=== PATIENT | female | born 1975 | race Caucasian/White ===

== ENCOUNTER 2019-06-20 18:48 | Inpatient (IN) | payer OTHER ==
[~2019-06-20 18:48] MED LIST: Bupivacaine 0.25% HCL 30 ML VIAL ONE
[2019-06-20] MEDS: Lactated Ringer's 1,000 ML IV SCH (20:30)
[2019-06-20] MEDS ORDERED: Penicillin G Potassium 5 MILL.UNITS VIAL ONE (21:11)
[2019-06-20] MEDS ORDERED: Sodium Chloride 0.9% 100 ML ONE (21:12)
[2019-06-20 21:22] VITALS: BMI 28.0
[2019-06-20 21:59] LABS: Hemoglobin 13.3 g/dL (12.0-16.0); Mean Corpuscular HGB CONC 34.4 g/dL (32.0-36.0); Mean Corpuscular Hemoglobin 29.9 pg (27.0-31.0); Mean Corpuscular Volume 86.9 fL (78.0-98.0); Mean Platelet Volume 7.7 fL (7.4-10.4); Platelet Count 179 thou/uL (130-400); RBC Distribution Width 13.1 % (11.5-14.5); Red Blood Cell (RBC) Count 4.46 mill/uL (4.20-5.40); White Blood Cell (WBC) Count 8.2 thou/uL (4.8-10.8)
[2019-06-20 22:39] LABS: Syphilis Antibody Nonreactive (Nonreactive); Syphilis Antibody Index 0.03 S/CO (<1.00 Non-Reactive)
[2019-06-20 22:57] LABS: HBSAg Index 0.35 S/CO (0-0.99); Hep B Surf Ag Non-Reactive S/CO (NonReactive)
[2019-06-20] MEDS ORDERED: Ondansetron PF 4 MG/2 ML Vial IVP PRN (23:16)
[2019-06-20] MEDS ORDERED: hydrALAZINE 20 MG/ML VIAL SLOW IVP PRN (23:16)
[2019-06-20] MEDS ORDERED: HYDROcodone/Acetaminophen 5/325 mg Tablet PO PRN (23:16)
[2019-06-20] MEDS ORDERED: Lidocaine 1% (PF) 30 ML VIAL SC PRN (23:16)
[2019-06-20] MEDS ORDERED: Ibuprofen 800 MG TAB PO PRN (23:16)
[2019-06-20] MEDS ORDERED: Promethazine HCl 25 MG/ML VIAL IM PRN (23:16)
[2019-06-20] MEDS ORDERED: NS / Oxytocin 40 units/1000ml 1,000 ML IV PRN (23:16)
[2019-06-20] MEDS ORDERED: Butorphanol Tartrate 1 MG/ML VIAL SLOW IVP PRN (23:16)
[2019-06-20] MEDS ORDERED: Penicillin G Potassium 5 MILL.UNITS in Sodium Chloride 0.9% 100 ML IVPB SCH (23:30)
[2019-06-20] MEDS ORDERED: Lactated Ringer's 1,000 ML IV SCH (23:30)
[2019-06-20] MEDS: Penicillin G 2.5 MILL.units 2.5 MILL.UNITS in Premix Bag 1 BAG IVPB SCH (23:49)
[2019-06-21] MEDS: Penicillin G 2.5 MILL.units 2.5 MILL.UNITS in Premix Bag 1 BAG IVPB SCH ×3 (01:13→10:13)
[2019-06-21] MEDS ORDERED: Fentanyl 4 mcg/Bup 0.1% Cadd 100 ML ONE (01:30)
[2019-06-21] MEDS ORDERED: NS / Oxytocin 40 units/1000ml 1,000 ML ONE (01:54)
[2019-06-21] MEDS ORDERED: Lidocaine 1% (PF) 30 ML VIAL ONE (01:54)
[2019-06-21] MEDS: Lactated Ringer's 1,000 ML IV SCH (02:23)
[2019-06-21] MEDS ORDERED: Lactated Ringer's 500 ML IV PRN (03:09)
[2019-06-21] MEDS ORDERED: Ondansetron PF 4 MG/2 ML Vial IVP PRN (03:09)
[2019-06-21] MEDS ORDERED: diphenhydrAMINE 50 MG/ML VIAL IVP PRN (03:09)
[2019-06-21] MEDS ORDERED: Promethazine HCl 25 MG/ML VIAL IM PRN (03:09)
[2019-06-21] MEDS ORDERED: ePHEDrine/0.9% NaCl/PF SYRINGE 50 mg/10 ml SLOW IVP PRN (03:09)
[2019-06-21] MEDS ORDERED: Naloxone HCl 0.4 mg/ml Vial IVP PRN ×2 (03:09)
[2019-06-21] MEDS ORDERED: Acetaminophen 325 MG TAB PO PRN (03:09)
[2019-06-21] MEDS ORDERED: Communication Order-Pharmacy FS SCH (03:15)
[2019-06-21] MEDS ORDERED: Fentanyl 4 mcg/Bupivacaine 0.1% Cassette 100 ML EPIDURAL SCH (03:15)
[2019-06-21] MEDS ORDERED: Misoprostol 200 MCG TAB ONE (06:20)
--- NOTE | 2019-06-21 06:51 | PDOC.LDHP ---
Labor and Delivery H&P Chief complaint: contractions HPI: CTX started at 6pm, persistent. Membranes stipped in office today. Current gestational age (weeks): 40 Due date: 06/21/19 Dating criteria: first trimester ultrasound Grav: 4 Para: 3 Current complications: none Abnormal US findings: No Current medications: pre- vitamins Previous surgical history: none Allergies/Adverse Reactions: Allergies Allergy/AdvReac Type Severity Reaction Status Date / Time No Known Allergies Allergy Verified 06/20/19 19:42 Social history: none - Physical Exam Vital signs reviewed and normal: yes General: NAD Heart: RRR Lungs: CTAB Abdomen: gravid Extremeties: no edema FHT: category 1, variability present - Vaginal Exam cm dilated: 3 Effacement: 75% Station: -2 - OB Labs Blood type: A RH: positive Antibody Screen: negative HIV: negative RPR: negative HEPSAg: negative 1 hour GCT: negative GBS: positive Urine drug screen: not done Rubella: immune - Assessment L&D Assessment: term patient in labor - Plan Plan: admit to L&D, labor augmentation if indicated, GBS antibiotic prophylaxis , informed consent obtained, anesthesia consult for pain management
--- NOTE | 2019-06-21 06:53 | PDOC.OPDEL ---
OB Operative/Delivery Note Delivery Dr/Surgeon: Earl Pre-Delivery Diagnosis: active labor Procedure/Post Delivery Dx: spontaneous vaginal delivery (Had OA, no nuchal cord , shoulders and body easily followed. placed on mother's chest.) Weeks gestation: 40 Anesthesia: epidural - Findings A Sex: female - 1 min: 9 - 5 min: 9 - Additional Findings/Plan Placenta delivered: spontaneous (Intact with 3VC. Boggy uterus after delivery - resolved with pitocin, bimanual massage, and cytotec 800mcg given rectally.) Repaired Obstetrical Laceration: none Post delivery plan: routine recovery
[2019-06-21] MEDS ORDERED: Benzocaine-Menthol 82.5 ML CAN TOP PRN (10:02)
[2019-06-21] MEDS ORDERED: HYDROcodone/Acetaminophen 5/325 mg Tablet PO PRN (10:02)
[2019-06-21] MEDS ORDERED: NS / Oxytocin 40 units/1000ml 1,000 ML IV SCH (10:02)
[2019-06-21] MEDS ORDERED: hydrALAZINE 20 MG/ML VIAL SLOW IVP PRN (10:02)
[2019-06-21] MEDS ORDERED: Preparation H Ointment 28 GM TUBE PR PRN (10:02)
[2019-06-21] MEDS ORDERED: Bisacodyl 10 MG SUPP PR PRN (10:02)
[2019-06-21] MEDS ORDERED: Milk Of Magnesia 30 ML UDCUP PO PRN (10:02)
[2019-06-21] MEDS ORDERED: Ferrous Sulfate 325 MG TAB PO SCH (10:15)
[2019-06-21] MEDS ORDERED: Docusate Calcium (SURFAK) 240 MG CAP PO SCH (10:15)
[2019-06-21] MEDS: Ferrous Sulfate 325 MG TAB PO SCH (12:01)
[2019-06-21] MEDS: Ibuprofen 800 MG TAB PO SCH ×2 (13:31→21:27)
[2019-06-21] MEDS ORDERED: Lanolin Ointment 7 GM TUBE TOP PRN (13:47)
[2019-06-21] MEDS: Docusate Calcium (SURFAK) 240 MG CAP PO SCH (21:27)
[2019-06-22] MEDS: Ibuprofen 800 MG TAB PO SCH (05:57)
[2019-06-22] MEDS: Ferrous Sulfate 325 MG TAB PO SCH (07:06)
[2019-06-22 07:42] VITALS: BP 97/62; TEMP 98
--- NOTE | 2019-06-22 08:05 | PDOC.PP ---
Post Progress Note Post Day #: 1 Subjective: Doing well. No complaints. Was having some nipple pain but that is a little better now. Ready to go home. PO intake tolerated: yes Flatus: yes Ambulation: yes Vital Signs (12 hours) Temp Pulse Resp BP Pulse Ox 06/22/19 07:41 98.0 F 81 20 97/62 98 06/22/19 04:00 97.9 F 82 14 102/58 L 96 06/22/19 00:00 98.4 F 83 14 87/51 L 95 Weight Weight 158 lb - Physical Examination General: NAD Cardiovascular: no m/r/g, RRR Respiratory: clear to auscultation bilaterally, non-labored breathing Abdominal: + bowel sounds, lochia, no distention, appropriately TTP Extremities: negative homans (B) Neurological: no gross focal deficits Result Diagrams: 06/20/19 21:40 Additional Labs: Post Labs Blood Type A POSITIVE 06/20/19 21:40 Hep Bs Antigen Non-Reactive S/CO (NonReactive) 06/20/19 21:40 (1) Vaginal delivery Code(s): O80 - ENCOUNTER FOR FULL-TERM UNCOMPLICATED DELIVERY Status: Acute - Assessment/Plan Routine PP care D/C home with baby this AM F/U in 6 weeks (3 days for baby) Continue with
[2019-06-22] MEDS: Docusate Calcium (SURFAK) 240 MG CAP PO SCH (09:14)
== END 2019-06-22 10:40 | disposition home or self-care (01) | DRG 807 ==
LOC: L&D/OP 18:48 → L&D 20:49 → 3SE 06-21 10:25
PROVIDERS: ADMIT Family Medicine; ATTEND Family Medicine
PROC: 10E0XZZ Delivery of Products of Conception, External Approach (ICD-10-PCS; principal; 2019-06-21)
DX: O99.824 Streptococcus B carrier state complicating childbirth (principal); Z37.0 Single live birth; Z3A.40 40 weeks gestation of pregnancy; N85.8 Other specified noninflammatory disorders of uterus
CPT/HCPCS: 36416; 51702; 85027; 86780; 86850; 86900; 86901; 87340; 99285; J2001; J2540; J3490; S0020